=== PATIENT | male | born 1955 | race Caucasian/White ===

== ENCOUNTER 2020-06-27 01:00 | Emergency (ER) | payer OTHER, SELFPAY ==
--- NOTE | 2020-06-27 01:02 | HMH.EDGENADL ---
ED Disposition Clinical Impression: Altered mental status Qualifiers: Altered mental status type: unspecified Qualified Code(s): R41.82 - Altered mental status, unspecified Disposition: Xfer Short-Term Hosp Condition on Discharge: Fair Referrals: Loulou Batista [Primary Care Provider] - - Critical Care Critical Care Time: No Attestation: On , the high probability of a clinically significant, sudden or life threatening deterioration of the following system(s) required my full and direct attention, intervention and personal management. The time I documented below is in addition to time spent performing reported procedures but includes the following listed in this critical care notation. Medical Decision Making - Medical Records Medical records reviewed: Yes: I reviewed the patient's medical records. - Alexsander Inquiry Pt receiving controlled substance: No Vital Signs: 06/27/20 01:07 06/27/20 01:30 06/27/20 02:00 Temperature 97.7 F Temperature Source Oral Pulse Rate 115 H 115 H Pulse Rate [Right Brachial] 119 H Respiratory Rate 16 17 16 Blood Pressure 151/109 H 149/92 H Blood Pressure [Right Arm] 150/93 H Blood Pressure Mean [Right Arm] 112 Blood Pressure Source [Right Arm] Automatic Cuff Blood Pressure Position [Right Arm] Sitting 02 Sat by Pulse Oximetry 98 95 94 L Oxygen Delivery Method Room Air 06/27/20 02:23 Temperature Temperature Source Pulse Rate 114 H Pulse Rate [Right Brachial] Respiratory Rate 16 Blood Pressure 131/90 Blood Pressure [Right Arm] Blood Pressure Mean [Right Arm] Blood Pressure Source [Right Arm] Blood Pressure Position [Right Arm] 02 Sat by Pulse Oximetry 97 Oxygen Delivery Method - Lab Data Lab Results 06/27/20 01:06: POC Glucose 120 H 06/27/20 01:10: WBC 9.4, RBC 4.82, Hgb 14.9, Hct 46.0, MCV 95.5 H, MCH 30.9, MCHC 32.3, RDW 13.6, Plt Count 322, MPV 7.5, Neut % (Auto) 71.7, Lymph % (Auto) 18.3, [place] % (Auto) 6.9, Eos % (Auto) 2.6, Baso % (Auto) 0.6, Neut # (Auto) 6.7, Lymph # (Auto) 1.7, [place] # (Auto) 0.7, Eos # (Auto) 0.2, Baso # (Auto) 0.1 06/27/20 01:10: PT 11.2, INR 0.95, APTT 29.0 06/27/20 01:10: Sodium 137, Potassium 4.2, Chloride 102, Carbon Dioxide 25, Anion Gap 14.2, BUN 5 L, Creatinine 0.70, Estimated Creat Clear 90, Estimated GFR 114, Est GFR ( Amer) 138, Glucose 132 H, Calcium 9.3, Magnesium 1.8, Total Bilirubin 0.3, AST 26, ALT 27, Alkaline Phosphatase 83, Total Creatine Kinase 90, Troponin I < 0.01, Total Protein 7.7, Albumin 4.5, Globulin 3.2, Albumin/Globulin Ratio 1.4, TSH 1.36 06/27/20 01:10: Plasma/Serum Alcohol < 10 06/27/20 01:20: Urine Color Yellow, Urine Appearance Clear, Urine pH 6.0, Ur Specific Arma 1.025, Urine Protein Negative, Urine Glucose (UA) Negative, Urine Ketones Negative, Urine Blood Negative, Urine Nitrate Negative, Urine Bilirubin Negative, Urine Urobilinogen 0.2, Ur Leukocyte Esterase Trace, Urine WBC 3-5, Urine Bacteria 1+, Urine Mucus 1+ 06/27/20 01:20: Urine Opiates Screen Negative, Urine Methadone Screen Negative, Ur Barbituates Screen Negative, Ur Phencyclidine Scrn Negative, Ur Amphetamines Screen Negative, U Benzodiazepines Scrn Negative, Urine Cocaine Screen Negative, U Marijuana (THC) Screen Negative Result diagrams: 06/27/20 01:10 06/27/20 01:10 Orders (Tests/Meds): ED MEDICATIONS Discontinued Medications Generic Name Dose Route Start Last Admin Trade Name Freq PRN Reason Stop Dose Admin Iopamidol 100 ml 06/27/20 03:10 06/27/20 02:30 Iopamidol-370 (76%);100ml Bottle IV 06/27/20 03:11 100 ml ONCE ONE Administration Sodium Chloride 50 ml 06/27/20 03:10 06/27/20 02:30 0.9 % Sodium Chloride 50 Ml Vial IV 06/27/20 03:11 50 ml ONCE ONE Administration Sodium Chloride 10 ml 06/27/20 03:10 06/27/20 02:30 Sodium Chloride 0.9% 10ml Syr (Rad Only) IV 06/27/20 03:11 10 ml ONCE ONE Administration ORDERS Category Date Time Status CT angio head Stat Cat
--- NOTE | 2020-06-27 01:05 | XR_ITS ---
PROCEDURE: XR CHEST PORTABLE CLINICAL HISTORY: aphasia COMPARISON: CT CT ANGIO NECK from 06/27/2020 FINDINGS: Somewhat limited exam secondary to patient's body habitus. Mild cardiomegaly without failure. There are increased markings in the left upper lobe which may be secondary to the radiographic technique and low lung volumes with vascular crowding. Cannot exclude underlying pneumonia or atelectasis. IMPRESSION: Limited study with low lung volumes and cardiomegaly with increased markings in the left upper lobe which could be due to underlying pneumonia or atelectatic change. Dictated by: Rafat Giraldo MD 06/27/2020 04:37 Rafat Giraldo MD in [facility] 06/27/2020 04:37
--- NOTE | 2020-06-27 01:05 | CT_ITS ---
PROCEDURE: CT HEAD/BRAIN WO CON CLINICAL INDICATION: altered mental status Altered mental status, altered level of consciousness, confusion, disorientation, aphasia COMPARISON: No exams were available for comparison TECHNIQUE: Axial images obtained. All CT scans at the facility use one or more dose reduction, viz: automated exposure control, ma/kV adjustment per patient size (including targeted exams where dose is matched to indication, i.e. head), or iterative reconstruction technique. FINDINGS: No midline shift, mass effect, intracranial hemorrhage, hydrocephalus, or extra-axial fluid collection is evident. There is generalized atrophy with hypoattenuation of the periventricular white matter consistent with microangiopathic changes. The calvarium has an unremarkable appearance. No mastoid effusion. Small bilateral maxillary sinus retention cyst IMPRESSION: No acute intracranial finding Dictated by: Rafat Giraldo MD 06/27/2020 05:43 Rafat Giraldo MD in [facility] 06/27/2020 05:43
--- NOTE | 2020-06-27 01:05 | CT_ITS ---
Procedure: CT ANGIO NECK CLINICAL HISTORY: altered mental status Speech disturbance, aphasia, Altered mental status, altered level of consciousness, confusion, disorientation COMPARISON: CT CT ANGIO HEAD from 06/27/2020 TECHNIQUE: IV Contrast: 100ml Isovue 370 Axial images obtained with sagittal and coronal reformats. All CT scans at the facility use one or more dose reduction, viz: automated exposure control, ma/kV adjustment per patient size (including targeted exams where dose is matched to indication, i.e. head), or iterative reconstruction technique. FINDINGS: Vascular opacification is somewhat limited. The aortic arch has an unremarkable appearance. Unremarkable appearance of the great vessels. There is mild plaque in the carotid bulbs but no significant stenosis. There is tortuosity of the internal carotids. No significant stenosis aneurysm or dissection. No vertebral stenosis occlusion or dissection. The right vertebral artery is hypoplastic. CTA head: Calcific plaque is present within the cavernous portion of both ICAs with less than 50 percent stenosis. No aneurysm, AVM, or major intracranial occlusive process is evident. There is persistent origin of both posterior cerebral arteries. No enhancing intracranial lesions. No midline shift or mass effect. Coronary artery calcifications and/or stents noted. There are small bilateral maxillary sinus retention cysts IMPRESSION: No occlusive changes of the neck or head. Mild atheromatous changes are present in the carotid bulbs and in the carotid siphons with no significant stenosis or occlusion. Dictated by: Rafat Giraldo MD 06/27/2020 09:32 Rafat Giraldo MD in [facility] 06/27/2020 09:32
--- NOTE | 2020-06-27 01:06 | ECG_ITS ---
APPROVED REPORT Exam: Resting ECG HR:117 bpm ECG Measurements Heart Rate 117 AXES FL 168 P 68 QRSd 70 QRS 66 QT 308 T 97 QTc 429 Conclusion Sinus tachycardia Otherwise normal ECG Electronically signed by : Sang Acosta, 06/29/2020 13:58:59
[2020-06-27 01:07] VITALS: BP 150/93; PULSE 119; RESP 16; TEMP 36.5; O2SAT 98; BMI 24.4
[2020-06-27 01:16] LABS: POC Glucose,Bedside 120 (70-110)
--- NOTE | 2020-06-27 01:16 | PC.NURSE ---
daughter at bedside
[2020-06-27 01:22] LABS: Basophils # 0.1 K/mm3 (0-0.2); Basophils % 0.6 % (0.1-2.0); Eosinophils # 0.2 K/mm3 (0.0-0.4); Eosinophils % 2.6 % (0.1-12.0); Hemoglobin 14.9 g/dL (14.1-18.0); Lymphocytes # 1.7 K/mm3 (0.7-4.5); Lymphocytes % 18.3 % (10-50); Mean Corpuscular HGB Conc 32.3 g/dL (31.8-35.4); Mean Corpuscular Hemoglobin 30.9 pg (27.0-31.2); Mean Corpuscular Volume 95.5 fl (80-94); Mean Platelet Volume 7.5 fl (7.4-10.4); Monocytes # 0.7 K/mm3 (0.1-1.0); Monocytes % 6.9 % (1.7-9.3); Neutrophils # 6.7 K/mm3 (1.8-7.8); Neutrophils % 71.7 % (37.0-80.0); Platelet Count 322 K/mm3 (142-424); Red Blood Count 4.82 M/mm3 (4.60-6.20); Red Cell Distribution Width 13.6 % (11.5-17.5); White Blood Count 9.4 K/mm3 (4.8-10.8)
[2020-06-27 01:26] LABS: Alanine Aminotransferase 27 U/L (12-78); Albumin Level 4.5 g/dl (3.5-5.0); Albumin/Globulin Ratio 1.4 (1.1-1.8); Alkaline Phosphatase 83 U/L (38-126); Anion Gap 14.2 mEq/L (5-15); Aspartate Amino Transferase 26 U/L (17-59); Bilirubin,Total 0.3 mg/dl (0.2-1.3); Blood Urea Nitrogen 5 mg/dl (9-20); Calcium 9.3 mg/dl (8.4-10.2); Carbon Dioxide 25 mmol/L (22.0-30.0); Chloride 102 mmol/L (98-107); Creatine Kinase 90 U/L (55-170); Creatinine Clearance Estimated 90 mL/min (50-200); Estimated Glomerular Filt Rate 114 ml/min (>60); GFR (African American) 138 ML/MIN (>60); Globulin 3.2 g/dL (1.3-3.2); Glucose 132 mg/dl (74-100); Magnesium 1.8 mg/dl (1.6-2.3); Potassium 4.2 mmoL/L (3.5-5.1); Sodium 137 mmol/L (136-145); Total Protein,Serum 7.7 g/dl (6.3-8.2)
[2020-06-27 01:30] VITALS: BP 151/109; PULSE 115; RESP 17; O2SAT 95
[2020-06-27 01:30] LABS: Microscopic, Urine URINE MICROSCOPIC (MICROSCOPIC)
[2020-06-27 01:33] LABS: Appearance,Urine CLEAR (Clear); Bilirubin,Urine Negative (Negative); Blood, Urine Negative (Negative); Color,Urine YELLOW (Yellow); Glucose,Urine (UA) Negative (Negative); Ketones,Urine Negative (Negative); Leukocyte Esterase,Urine TRACE (Negative); Nitrate,Urine Negative (Negative); Protein,Urine Negative (Negative); Specific Gravity, Urine 1.025 (1.005-1.030); Urobilinogen,Urine 0.2 EU/dl (0.2)
[2020-06-27 01:37] LABS: Ethyl Alcohol < 10 mg/dl (0-10)
[2020-06-27 01:39] LABS: Bacteria,Urine 1+ /lpf; Mucus,Urine 1+ /lpf
[2020-06-27 01:40] LABS: Troponin I < 0.01 ng/ml (0.00-0.034)
[2020-06-27 01:47] LABS: Barbiturates Screen,Urine Negative ng/ml (<200)
[2020-06-27 01:48] LABS: Amphetamine/Metha Screen,Urine Negative ng/ml (<1000)
[2020-06-27 01:49] LABS: Benzodiazepines Screen,Urine Negative ng/ml (<200); Cannabinoid Screen,Urine Negative ng/ml (<50)
[2020-06-27 01:50] LABS: Cocaine Screen,Urine Negative ng/ml (<300)
[2020-06-27 01:51] LABS: Methadone Screen,Urine Negative ng/ml (<300); Phencyclidine Screen,Urine Negative ng/ml (<25)
[2020-06-27 01:52] LABS: Opiate Screen,Urine Negative ng/ml (<300)
[2020-06-27 01:56] LABS: Thyroid Stimulating Hormone 1.36 uIU/mL (0.465-4.68)
[2020-06-27 02:00] VITALS: BP 149/92; PULSE 115; RESP 16; O2SAT 94
[2020-06-27 02:00] LABS: INR 0.95 (0.9-1.1); Prothrombin Time 11.2 seconds (10.1-12.5)
[2020-06-27 02:23] VITALS: BP 131/90; PULSE 114; RESP 16; O2SAT 97
--- NOTE | 2020-06-27 03:01 | PC.NURSE ---
NORIS GARCIA on phone with [facility]
--- NOTE | 2020-06-27 03:14 | PC.NURSE ---
on phone with [facility] transfer center for neuro
--- NOTE | 2020-06-27 03:32 | PC.NURSE ---
Dr marcano @ [facility] accepted pt
[2020-06-27 03:34] LABS: Ammonia 9 umol/L (9-30)
[2020-06-27 03:35] LABS: Lactic Acid 1.7 mmol/L (0.7-2.1)
[2020-06-27 04:00] VITALS: BP 150/94; PULSE 113; RESP 17; TEMP 36.8; O2SAT 98
== END 2020-06-27 04:54 | disposition short-term general hospital (02) ==
PROVIDERS: Emergency Provider Emergency Medicine; PCP Family Medicine
DX: R41.82 Altered mental status, unspecified (principal); R47.01 Aphasia; K21.9 Gastro-esophageal reflux disease without esophagitis; I10 Essential (primary) hypertension; Z79.899 Other long term (current) drug therapy
CPT/HCPCS: 70450; 70496; 70498; 71045; 80053; 80305; 81001; 82140; 82550; 82962; 83605; 83735; 84443; 84484; 85025; 85610; 85730; 93005; 99284; Q9967; U0003